=== PATIENT | male | born 1955 | race African-American/Black ===

== ENCOUNTER 2016-10-08 15:35 | Emergency (ER) | payer OTHER ==
[~2016-10-08] VITALS: Ht 175.3 cm; Wt 72.6 kg
[~2016-10-08 15:35] MED LIST: THIA100T8 PO
[2016-10-08 16:10] VITALS: BP 133/76
--- NOTE | 2016-10-08 16:20 | RAD ---
EXAM: Frontal chest with 4 view left rib series. HISTORY: Left rib pain after a fall. COMPARISON: 12/07/2015. FINDINGS: There are acute fractures of the left eighth through 10th anterior/lateral ribs. There are subacute to chronic fractures of the more proximal left anterolateral inferior ribs. There is a vague nodular opacity in the right lung base measuring 18 mm. There is no pneumothorax or pleural effusion. The heart is not enlarged. IMPRESSION: 1. Nondisplaced acute fractures of the left eighth through 10th ribs. No pneumothorax. 2. A vague nodular opacity in the right base is indeterminate. Follow-up or CT could exclude a parenchymal nodule.
[2016-10-08] MEDS ORDERED: HYDR-971 PO (16:41)
[2016-10-08] MEDS ORDERED: CYCL10TA2 PO (16:41)
--- NOTE | 2016-10-08 16:41 | PHYS DOC ---
Past Medical History Past Medical History: Hypertension Past Surgical History: Other Additional Past Surgical Histo: hemorrhoids, HIP SURGERY, cataract Alcohol Use: Heavy Drug Use: None Adult General Chief Complaint Chief Complaint: RIB PAIN HPI HPI Patient is a 61 year old male with history of hypertension who presents today with moderate left lateral rib pain that began 3 days ago after falling while ambulating. Patient denies any loss of consciousness. Patient states he is a smoker. Patient states he has no PCP. Review of Systems Review of Systems Constitutional: Denies fever or chills [] Eyes: Denies change in visual acuity, redness, or eye pain [] HENT: Denies nasal congestion or sore throat [] Respiratory: moderate left lateral rib pain Cardiovascular: No additional information not addressed in HPI [] GI: Denies abdominal pain, nausea, vomiting, bloody stools or diarrhea [] : Denies dysuria or hematuria [] Musculoskeletal: Denies back pain or joint pain [] Integument: Denies rash or skin lesions [] Neurologic: Denies headache, focal weakness or sensory changes [] Endocrine: Denies polyuria or polydipsia [] Current Medications Current Medications Current Medications Medications (Trade) Dose Ordered Sig/Kati Start Time Stop Time Status Last Admin Dose Admin Acetaminophen/ Hydrocodone Bitart (Lortab 5/325) 2 tab 1X ONCE 10/08/16 16:45 10/08/16 16:46 UNV Cyclobenzaprine HCl (Flexeril) 10 mg 1X ONCE 10/08/16 16:45 10/08/16 16:46 UNV Allergies Allergies Allergies Coded Allergies Type Severity Reaction Last Updated Verified No Known Drug Allergies 12/27/14 No Physical Exam Physical Exam Constitutional: Well developed, well nourished, no acute distress, non-toxic appearance. [] HENT: Normocephalic, atraumatic, bilateral external ears normal, oropharynx moist, no oral exudates, nose normal. [] Eyes: PERRLA, EOMI, conjunctiva normal, no discharge. [] Neck: Normal range of motion, no tenderness, supple, no stridor. [] Cardiovascular:Heart rate regular rhythm, no murmur [] Lungs & Thorax: Bilateral breath sounds clear to auscultation left lateral ribs with no obvious edema or ecchymosis, tenderness on palpation diffusely on the left lateral ribs mid axillary running proximately ribs 7 through 11. Abdomen: Bowel sounds normal, soft, no tenderness, no masses, no pulsatile masses. [] Skin: Warm, dry, no erythema, no rash. [] Back: No tenderness, no CVA tenderness. [] Extremities: No tenderness, no cyanosis, no clubbing, ROM intact, no edema. [] Neurologic: Alert and oriented X 3, normal motor function, normal sensory function, no focal deficits noted. [] Psychologic: Affect normal, judgement normal, mood normal. [] Current Patient Data Vital Signs Vital Signs Date Time Temp Pulse Resp B/P Pulse Ox O2 Delivery O2 Flow Rate FiO2 10/08/16 16:10 98.3 77 16 98 Room Air 98.3 EKG EKG [] Radiology/Procedures Radiology/Procedures [] Course & Med Decision Making Course & Med Decision Making Pertinent Labs and Imaging studies reviewed. (See chart for details) Patient is in the ED with left lateral rib pain after falling. X-rays of the left ribs interpreted by radiologist are noted for a nondisplaced acute fractures of left eighth through 10th ribs, no pneumothorax, nodular opacities noted in the patient's lung on xray, recommended they follow up with PCP for this. Patient was provided an incentive spirometry in the ED. Provided a doctor' s list for follow-up. Encouraged to take deep breaths every hour. Provided return precautions and discharged in stable condition. Dragon Disclaimer Dragon Disclaimer This electronic medical record was generated, in whole or in part, using a voice recognition dictation system. Departure Departure Impression: Primary Impression: Fall from standing Additional Impressions: Left rib fracture Smoking addiction Dehydration Disposition: 01 HOME, SELF-CARE Condition: STABLE Referrals: NO PCP (PCP) Follow-up with a doctor from the list provided in 7 days. Patient Instructions: Rib Fracture, [id number] Additional Instructions: You were seen for rib fractures after falling. Take the prescribed medicines as needed. Take deep breaths 10 times every hour while awake. Follow-up with a doctor from the list provided in one week. Come back to the ED if symptoms worsen. Scripts Hydrocodone/Apap 5-325 ([place] 5-325 Tablet)1 Each Tablet1-2 Tab PO Q4-6HRS #25 TAB Prov:MUTUNGA,ALTA MITER OPERATOR 10/08/16 Cyclobenzaprine Hcl 10 Mg Tablet1 Tab PO TID #30 TAB Prov:ALEKSANDRAJAIMEALTA MONTENEGRO 10/08/16 Problem Qualifiers Primary Impression: Fall from standing Encounter type: initial encounter Qualified Code: W19.XXXA - Unspecified fall, initial encounter Additional Impressions: Left rib fracture Encounter type: initial encounter Rib fracture type: multiple ribs Fracture type: closed Qualified Code: S22.42XA - Multiple fractures of ribs, left side, initial encounter for closed fracture ALTA METZ APRN Oct 08, 2016 16:41
[2016-10-08] MEDS ORDERED: HYDROCODONE/APAP 5/325MG TABLET. PO ONE (16:45)
[2016-10-08] MEDS ORDERED: CYCLOBENZAPRINE 10 MG TABLET. PO ONE (16:45)
== END 2016-10-08 17:08 | disposition home or self-care (01) ==
LOC: ER 15:35
DX: S22.32XA Fracture of one rib, left side, initial encounter for closed fracture (principal); I10 Essential (primary) hypertension; E86.0 Dehydration; F17.200 Nicotine dependence, unspecified, uncomplicated; F10.10 Alcohol abuse, uncomplicated; W19.XXXA Unspecified fall, initial encounter; Y93.89 Activity, other specified; Y99.8 Other external cause status; Y92.89 Other specified places as the place of occurrence of the external cause
CPT/HCPCS: 71101; 99284

== ENCOUNTER → 2019-10-30 | Outpatient (CLI) | payer MEDICAID ==
[2019-09-23 15:00] VITALS: BP 134/93
[~2019-10-30] MED LIST changes: +CONTRAST GIVEN. MC PRN; +CYCL10TA2 PO; +HYDR-2761 PO; +HYDR-3164 PO; +Nicotine 21MG TD
[2019-10-30] MEDS: IOHEXOL 300 MG/ML 100ML VIAL. IV ONE (08:45)
[2019-10-30] MEDS: IOHEXOL 240 MG/ML 50ML VIAL. PO ONE (08:45)
--- NOTE | 2019-10-30 09:21 | RAD ---
Examination: CT ABD PELV W/ORAL IV CONTRAST History: Lung cancer Comparison/Correlation: 09/19/2019 CT chest with contrast Findings: Axial images of the abdomen and pelvis were obtained following IV and oral contrast. Sagittal and coronal reformatted images were provided. Oral contrast was inserted. Right lower lung field mass with necrotic components is only partially included for purposes of this exam. Surrounding interstitial thickening is seen. Minimal improvement aeration in the distribution of this process noted. Emphysematous involvement of the lower lung walker noted. At the inferior aspect of the right hepatic lobe, there is a 1.3 cm x 1.1 cm mass lesion abutting the capsule with peripheral nodular enhancement as would be expected of a hemangioma. Spleen, pancreas, adrenal glands, and kidneys are normal. Moderate to large quantity of stool is present in the colon. No extraluminal gas. No ascites or pelvic free fluid. Urinary bladder is unremarkable. No suspicious bony process. There is moderate L3-4 and L4-5 disc space narrowing. Concentric disc bulges are present at these levels associated with L3 with spinal canal stenosis. Minimal retrolisthesis of L3 in relation L4. Left hip joint prosthesis is present. Impression: Right hepatic lobe lesion which most likely represents a hemangioma. Correlation with previous exams if available is recommended. Alternatively, ultrasound exam may be performed for further characterization. Right lower lung field mass is again seen. Minimal aeration within necrotic components is evident in the interval. PQRS Compliance Statement: One or more of the following individualized dose reduction techniques were utilized for this examination: 1. Automated exposure control 2. Adjustment of the mA and/or kV according to patient size 3. Use of iterative reconstruction technique Electronically signed by: Kenneth Gonsalves MD (10/30/2019 9:18 AM) [id number]
[2019-10-30] MEDS: GADOTERATE 7.5 MMOL/15ML VIAL. IVP ONE (09:34)
--- NOTE | 2019-10-30 10:26 | RAD ---
BRAIN WO/W CONTRAST History:Lung cancer. Technique: Multiplanar, multi sequential pre and postcontrast MR imaging was performed of the brain. Comparison: December 07, [address] angiogram neck September 19, 2019 Findings: No acute infarct. No intracranial hemorrhage. No mass effect. No hydrocephalus. Mild brain parenchymal volume loss. Minimal foci of T2/FLAIR hyperintensity within the hemispheric white matter, within normal range for age. Imaged orbits are unremarkable. Left inferior maxillary sinus because retention cyst or polyp, slightly increased in size compared to 2016. Right mastoid and middle ear fluid, unchanged. Left mastoid fluid, unchanged. Large necrotic right neck mass better characterized on dedicated CT angiogram neck. Impression: 1. No acute intracranial abnormality. No evidence of metastatic disease. 2. Right otomastoid opacification, unchanged. 3. Large right necrotic neck mass, better characterize and CT angiogram neck. Electronically signed by: David Dooley DO (10/30/2019 10:24 AM) [id number]
== END ==
LOC: CT 07:38
PROVIDERS: ATTEND Internal Medicine Hematology & Oncology
DX: C34.31 Malignant neoplasm of lower lobe, right bronchus or lung (principal); K76.9 Liver disease, unspecified; M48.061 Spinal stenosis, lumbar region without neurogenic claudication; R22.1 Localized swelling, mass and lump, neck
CPT/HCPCS: 70553; 74177; A9575; Q9966; Q9967

== ENCOUNTER → 2020-02-02 | Outpatient (CLI) | payer MEDICAID ==
[2019-09-23 15:00] VITALS: BP 134/93
[~2020-02-02] MED LIST changes: +IOHEXOL 240 MG/ML 50ML VIAL. PO ONE; +IOHEXOL 300 MG/ML 100ML VIAL. IV ONE
--- NOTE | 2020-02-02 15:48 | RAD ---
Examination: CT NECK CHEST ABD PELVIS W CON History: Reason: MALIGNANT NEOPLASM OF RIGHT LUNG / Spl. Instructions: IV OMNI 300 75 MNLS AND PO OMNI 240 50 MLS / History: Comparison/Correlation: CTA neck 09/19/2019, CT chest with contrast 09/20/2019, CT abdomen and pelvis with contrast 10/30/2019 Findings: Axial images of the neck, chest, abdomen, and pelvis were obtained following IV contrast. Oral contrast was utilized. Sagittal and coronal reformatted images were provided. Visualized posterior fossa is unremarkable. Orbits are unremarkable. Chronic bilateral maxillary sinusitis is present. Mucosal thickening of ethmoid air cells is noted. Right medial wall maxillary sinus defect is present. Correlate with surgical history. Old depressed fracture of the antrum on the right lesser sinus is present. Defects involving the right lateral maxillary sinus wall presumably related to previous trauma noted. Parotid and submandibular glands are unremarkable. No enlarged lymph nodes are identified involving the head and neck. True and false cords are symmetric. Thyroid gland is normal. Mass lesion previously described involving the right side of the neck posterior to the submandibular gland as noted has significantly decreased in size currently measuring 2.4 cm x 0.5 cm on axial image 53 of series 2. Disc space narrowing at multiple levels of the cervical spine are noted and most severe at C5-6. Multiple lucencies are present involving cervical spine vertebral bodies similar to the prior exam and these are of indeterminate significance. These are stable and small in size. Right upper lung field mass is present measuring 3.2 cm x 1.4 cm transverse by 2.6 longitudinal. This is moderately decrease in size in the axial plane compared to the previous exam. At the right lower lobe infrahilar region extending to the basilar aspect abutting the major fissure, a mass is noted to have significantly decreased since the prior exam. Cavitary component within it is seen in the interval. Overall this process measures 5.8 cm x 3.9 cm in the coronal plane on image 41 by 4.3 cm anteroposterior on axial image #6. This represents a decrease compared to the previous exam in the coronal plane by 1.3 cm x 2.2 cm and a decrease in the anteroposterior dimension by 1.4 cm compared to previous exam. Left upper lung field ground glass infiltrate on axial image 29 is similar to the prior exam measuring 1.7 cm x 1.5 cm although the cavitary component is resolved in the interval. Diffuse emphysematous involvement of the lung walker is noted. No enlarged thoracic lymph nodes. Liver, spleen, pancreas, adrenal glands, and kidneys are unremarkable. There is a lesion at the inferior aspect of the right hepatic lobe on axial image 28 measuring 1.1 mm in diameter which is stable and probably represents a hemangioma. There are no enlarged abdominal or pelvic lymph nodes. No bowel obstruction. No ascites or pelvic free fluid. Urinary bladder is grossly unremarkable although evaluation is limited at the inferior aspect due to streak artifact related to the left hip joint prosthesis present. Multilevel disc space narrowing of the lumbar spine is present. Concentric disc bulge is especially noted at L3-4 and L4-5 with moderate spinal canal stenoses. Impression: Decrease in size of the right upper and lower lung masses. No change in left upper lung field ground glass infiltrate other than resolution of the cavitary component. Marked decrease in the mass lesion posterior to the right submandibular gland. No new masses or enlarged lymph nodes. No findings to suggest interval metastases. Hepatic lesion is stable likely representing a hemangioma. Correlation with ultrasound exam or continued interval follow-up to assess stability is recommended. Electronically signed by: Kenneth Gonsalves MD (02/02/2020 3:45 PM) [id number]
== END | disposition home or self-care (01) ==
LOC: CT 09:45
PROVIDERS: ATTEND Internal Medicine Hematology & Oncology
DX: C34.31 Malignant neoplasm of lower lobe, right bronchus or lung (principal); R53.83 Other fatigue; R91.8 Other nonspecific abnormal finding of lung field; J43.9 Emphysema, unspecified; M51.26 Other intervertebral disc displacement, lumbar region; M48.061 Spinal stenosis, lumbar region without neurogenic claudication
CPT/HCPCS: 70491; 71260; 74177; Q9966; Q9967

== ENCOUNTER → 2020-04-27 | Outpatient (CLI) | payer MEDICAID ==
[2019-09-23 15:00] VITALS: BP 134/93
[~2020-04-27] MED LIST changes: -CONTRAST GIVEN. MC PRN
--- NOTE | 2020-04-27 16:43 | RAD ---
Examination: CT NECK CHEST ABD PELVIS W CON History: R LUNG CA / Spl. Instructions: INJ 75ML OMNI 300 30ML OMNI 240 PO Comparison/Correlation: CT neck 09/19/2019, CT chest with contrast 09/21/2019, CT abdomen and pelvis with contrast 10/30/2019, CTA neck chest abdomen and pelvis 02/02/2012 Findings: Axial images of the neck, chest, abdomen, and pelvis were obtained following IV contrast. Sagittal and coronal reformatted images were provided. Axial images of the neck, chest, abdomen, and pelvis obtained following IV contrast. Sagittal and coronal reformatted images were provided. Maxillary sinus mucous retention cysts are present. Deformity involving the right maxillary sinus lateral wall is again seen. Soft tissue density posterior to the right mandibular gland is present. It is similar to the previous exam abutting the proximal aspect of the internal carotid artery. No new cervical masses or enlarged lymph nodes. Thyroid gland is normal. The true and false cords are symmetric. Parotid and submandibular glands are symmetric and unremarkable. Overall decreased volume of the patient's known right upper lobe spiculated mass. This process currently measures 2.5 cm longitudinal by 0.8 cm transverse by 2.8 cm anteroposterior. This represents a decrease in transverse dimension by 0.4 cm and minimal decrease in the anteroposterior dimension. Infralateral linear atelectasis or scarring has developed in the interval. Right lower lobe basilar atelectatic postobstructive consolidation process with retained secretions is identified. Cavitary component previously evident is no longer seen. This process measures 4 cm transverse by 7.6 cm anteroposterior by 4.4 cm longitudinal. Groundglass infiltrate involving the left upper lung anteriorly on axial images 25 through 28 measuring up to 1.5 cm the prior exam. Cavitary confluent subjacent and posterior to the infiltrate is unchanged. Mild centrilobular emphysema is present. No enlarged thoracic nodes. Bony thorax is unremarkable. Degenerative change of cervical spine noted. No significant degenerative change of the thoracic spine. Liver, spleen, pancreas, and kidneys are unremarkable. Right hepatic lobe low-attenuation lesion measuring 1 cm in diameter is stable as compared to 02/18/2009 CT abdomen and pelvis with contrast representing a hemangioma or other benign process. Adrenal glands are unremarkable. Appendix is normal. No large abdominal or pelvic lymph nodes. No ascites or pelvic free fluid. Urinary bladder is unremarkable. Left hip arthroplasty is again seen. Degenerative disc space narrowing from L2 to L4 is present. Concentric disc bulge at L2-3 and L3-4 is present with vacuum phenomenon and associated spinal canal stenosis of moderate extent.these sites. Impression: Soft tissue density posterior to the right submandibular gland is stable. Mild decrease in the right upper lung mass. Increase in right basilar lower lobe atelectatic consolidation. Unchanged left upper lung groundglass infiltrate. Continued follow-up recommended. No suspicious abdominal or pelvic findings. Electronically signed by: Kenneth Gonsalves MD (04/27/2020 4:40 PM) [id number]
== END | disposition home or self-care (01) ==
LOC: CT 12:36
PROVIDERS: ATTEND Internal Medicine Hematology & Oncology
DX: C34.31 Malignant neoplasm of lower lobe, right bronchus or lung (principal); R53.83 Other fatigue; J43.2 Centrilobular emphysema; M47.813 Spondylosis without myelopathy or radiculopathy, cervicothoracic region
CPT/HCPCS: 70491; 71260; 74177; Q9966; Q9967

== ENCOUNTER → 2020-08-01 | Outpatient (CLI) | payer MEDICAID ==
[2019-09-23 15:00] VITALS: BP 134/93
[~2020-08-01] MED LIST changes: +CONTRAST GIVEN. MC PRN; +IOHEXOL 240 MG/ML 50ML VIAL. ONE
--- NOTE | 2020-08-02 14:10 | RAD ---
EXAM: CT Chest, Abdomen, and Pelvis with IV contrast INDICATION: Reason: MALIGNANT NEOPLASM OF RIGHT LUNG / Spl. Instructions: IV OMNI 300 75 MLS AND PO O MNI 240 50 MLS / History: TECHNIQUE: Multi-detector row CT images were acquired from the thoracic inlet through the ischial tu berosities with the use of IV contrast. Sagittal and coronal images were acquired from the transaxial data. All CT scans performed at this facility utilize dose optimization techniques as appropriate to the exam, including the following: Automated exposure control and adjustment of the mA and/or KV acc ording to patient size (this includes techniques or standardized protocols for targeted exams where d ose is indication/reason for exam). IV CONTRAST: Administered ORAL CONTRAST: Administered COMPARISON: CT chest abdomen pelvis with IV contrast of 04/27/2020 and 01/06/2020 FINDINGS: CHEST: CARDIOVASCULAR: Tortuous thoracic aorta. Normal heart size. No pericardial effusion. MEDIASTINUM & MANFRED: No adenopathy or masses. LUNGS: Slight interval decrease in spiculated right upper lobe lung nodule, now measuring 1.6 x 0.9 x 1.9 cm (AP by transverse by craniocaudal), as measured on image 22 of series 3 and image 21 of series 8 on the axial and coronal planes, compared with 2.6 x 1.0 x 2.4 cm at the comparable levels on the most r ecent comparison examination of 04/27/2020 (image 26 of series 3 and image 34 of coronal series 9). Although the mass is irregular and thus variable in measurement, there is clear, equivocal progressiv e decrease in size when compared with the January 2020 prior exam. No new lung masses are nodules identi fied. Segmental postobstructive atelectasis in the anterior and lateral basal segments of the right lower l obe is again demonstrated. Overall size is similar to prior measuring 3.9 x 4.0 cm AP by transverse ( image 47 series 3) compared with 4.9 x 4.2 cm at the comparable level in January and 5.9 x 4.1 [facility]. Underlying mild centrilobular pattern emphysema is redemonstrated. PLEURAL SPACE: No pleural effusions or pneumothorax. OSSEOUS & SOFT TISSUE: Unremarkable ABDOMEN/PELVIS: LIVER: Stable 1.2 cm nodular peripheral enhancing low-density lesion in the right hepatic lobe janette tible with a hemangioma. BILIARY SYSTEM: Gallbladder is unremarkable. Bile ducts are not dilated. PANCREAS: Unremarkable SPLEEN: Unremarkable ADRENALS: Unremarkable KIDNEYS & URETERS: Mild bilateral renal cortical scarring or persistent lobulation is present. No abnormal enhancement. No radiopaque stones or hydronephrosis and no hydroureter is identified. Th ere is some respiratory motion artifact that limits detail. BLADDER: Unremarkable although obscured by streak artifact from left hip arthroplasty REPRODUCTIVE ORGANS: Unremarkable GASTROINTESTINAL: Oral contrast was administered but it does not opacify the entire small bowel at th e time of imaging. There is very dense intraluminal contrast present in the left sided abdominal smal l bowel loops and no enteric contrast identified in the right-sided small bowel loops. Instead, there is filled with unopacified fluid and there is intervening gradual dilution of enteric contrast. This is a pattern suggestive of a partial small bowel obstruction. Correlate clinically. The large bowel is unremarkable. The appendix is not well seen but there are no findings of acute appendicitis noted. MESENTERY/PERITONEUM/RETROPERITONEUM: Unremarkable VASCULAR: Unremarkable LYMPH NODES: No adenopathy OSSEOUS & SOFT TISSUES: Left total hip arthroplasty. No fracture or aggressive appearing osseous les ions are identified. IMPRESSION: 1. Slight interval decrease in size of the spiculated right upper lobe lung nodule, now measuring 1. 6 x 0.9 x 1.9 cm compared with 2.6 x 1.0 x 2.4 cm on the most recent comparison examination of 020. No new lung masses are identified. Subsegmental atelectasis in the right lower lobe anterior and lateral basal segment persists. Obstructive cause not clear based on CT alone. Correlate clinically including bronchoscopy as clinically warranted. 2. No evidence for metastatic disease in the abdomen or pelvis. 3. Findings suggestive of a partial small bowel obstruction, as detailed above. Correlate clinically . Electronically signed by: Jessica Harris MD (08/02/2020 2:07 PM) [id number]
== END ==
LOC: CT 14:02
PROVIDERS: ATTEND Internal Medicine Hematology & Oncology
DX: C34.91 Malignant neoplasm of unspecified part of right bronchus or lung (principal); R91.1 Solitary pulmonary nodule; J43.2 Centrilobular emphysema; J98.11 Atelectasis; R53.83 Other fatigue; Q25.46 Tortuous aortic arch; K76.89 Other specified diseases of liver; Z96.642 Presence of left artificial hip joint
CPT/HCPCS: 71260; 74177; Q9966; Q9967

== ENCOUNTER → 2020-11-09 | Outpatient (CLI) | payer MEDICAID ==
[2019-09-23 15:00] VITALS: BP 134/93
[~2020-11-09] MED LIST changes: -IOHEXOL 240 MG/ML 50ML VIAL. ONE
--- NOTE | 2020-11-10 14:55 | RAD ---
EXAM: CT CHEST, ABDOMEN, AND PELVIS WITH CONTRAST INDICATION: Malignant neoplasm of right lung COMPARISON: CT chest abdomen pelvis 08/01/2020 TECHNIQUE: Helical CT imaging performed of the chest, abdomen and pelvis after administration of 75 m L Omnipaque 300 contrast. Sagittal and coronal reformats were obtained. One or more of the following individualized dose reduction techniques were utilized for this examinat ion: 1. Automated exposure control 2. Adjustment of the mA and/or kV according to patient size 3. Use of iterative reconstruction technique. FINDINGS: CHEST: Thyroid gland and thoracic inlet: Normal. Heart and great vessels: Heart is normal in size. No pericardial effusion. Thoracic aorta is normal i n caliber. Central pulmonary arteries are clear. Mediastinum and marce: No lymphadenopathy. Lungs and pleura: Spiculated nodule in the right upper lobe measures 2.5 x 0.8 x 2.3 cm (AP by transv erse by CC) is unchanged. A masslike consolidation in the right lower lobe measures 3.2 x 3.5 x 2.6 c m, previously 3.9 x 3.9 x 2.7 cm. There is mild centrilobular emphysema. No new pulmonary nodules. No pleural effusion. Chest wall and axillae: Small right axillary lymph nodes measuring 6 mm axis are unchanged. Bilateral gynecomastia. Bones: No acute osseous abnormality in the chest. ABDOMEN AND PELVIS: Liver: A 7 mm hypodense lesion in the posterior right hepatic lobe with peripheral nodular enhancemen t is unchanged from 2009 and consistent with a hemangioma. No new liver lesion. Gallbladder/Biliary Tree: Normal. Pancreas: Normal. Spleen: Normal. Adrenal Glands: Normal. Kidneys/Ureters/Bladder: The kidneys are normal. Ureters and bladder are grossly normal. Streak artif act from a left hip prosthesis mildly limits evaluation of the distal left ureter and bladder. Reproductive Organs: Prostate gland is partially obscured by streak artifact. Stomach, small bowel, and colon: Stomach is normal. No small bowel obstruction. The colon is unremark able. Vasculature: Abdominal aorta is normal in caliber. Lymph Nodes: No lymphadenopathy. Peritoneum and retroperitoneum: No free fluid or free air. Bones: Left hip prosthesis is unchanged. Mild degenerative disc disease at L3-L4 and L4-L5. No acute osseous abnormality or suspicious osseous lesion. IMPRESSION: 1. Unchanged spiculated nodule in the right upper lobe. Slightly decreased size of masslike consolid ation in the right lower lobe. 2. No evidence of metastatic disease in the abdomen or pelvis. Electronically signed by: Sandhya Arias MD (11/10/2020 2:52 PM) [id number]
== END ==
LOC: CT 12:21
PROVIDERS: ATTEND Internal Medicine Hematology & Oncology
DX: C34.31 Malignant neoplasm of lower lobe, right bronchus or lung (principal); J43.2 Centrilobular emphysema; M51.36 Other intervertebral disc degeneration, lumbar region; R91.1 Solitary pulmonary nodule; Z96.642 Presence of left artificial hip joint
CPT/HCPCS: 71260; 74177; Q9966; Q9967

== ENCOUNTER 2021-01-31 20:55 | Emergency (ER) | payer MEDICAID ==
[~2021-01-31] VITALS: Ht 175.3 cm; Wt 60.7 kg
[~2021-01-31 20:55] MED LIST changes: -CONTRAST GIVEN. MC PRN; -IOHEXOL 240 MG/ML 50ML VIAL. PO ONE; -IOHEXOL 300 MG/ML 100ML VIAL. IV ONE
--- NOTE | 2021-01-31 21:43 | PHYS DOC ---
Past Medical History Past Medical History: Glaucoma, Hypertension Past Surgical History: Other Additional Past Surgical Histo: hemorrhoids, HIP SURGERY, cataract Smoking Status: Current Every Day Smoker Alcohol Use: Heavy Drug Use: None General Adult EDM: Chief Complaint: LOWER EXT PAIN HPI: HPI: Patient is a 65 year old male who was brought here by EMS from home due to right foot and ankle pain started today. Patient denies any injury. Patient complained of pain whenever he walks up any weight on it. Patient has history of hip replacement on the left side. Patient denies any injury, no back pain, no abdominal pain, no chest pain, no nausea vomiting, no headache, no dizziness. Patient has history of lung cancer, stage IV lung cancer, is currently under chemo treatment at [facility]. Review of Systems: Review of Systems: Constitutional: Denies fever or chills. [] Eyes: Denies change in visual acuity. [] HENT: Denies nasal congestion or sore throat. [] Respiratory: Denies cough or shortness of breath. [] Cardiovascular: Denies chest pain or edema. [] GI: Denies abdominal pain, nausea, vomiting, bloody stools or diarrhea. [] : Denies dysuria. [] Musculoskeletal: Positive for right foot and ankle pain. Neurologic: Denies headache, focal weakness or sensory changes. [] Endocrine: Denies polyuria or polydipsia. [] Lymphatic: Denies swollen glands. [] Psychiatric: Denies depression or anxiety. [] Heart Score: C/O Chest Pain: N/A Risk Factors: Risk Factors: DM, Current or recent (<one month) smoker, HTN, HLP, family history of CAD, obesity. Risk Scores: Score 0 - 3: 2.5% MACE over next 6 weeks - Discharge Home Score 4 - 6: 20.3% MACE over next 6 weeks - Admit for Clinical Observation Score 7 - 10: 72.7% MACE over next 6 weeks - Early Invasive Strategies Allergies: Allergies: Allergies Coded Allergies Type Severity Reaction Last Updated Verified No Known Drug Allergies 12/27/14 No Physical Exam: PE: Constitutional: Well developed, well nourished, no acute distress, non-toxic appearance. [] HENT: Normocephalic, atraumatic, bilateral external ears normal, oropharynx moist, no oral exudates, nose normal. [] Eyes: PERRLA, EOMI, conjunctiva normal, no discharge. [] Neck: Normal range of motion, no tenderness, supple, no stridor. [] Cardiovascular:Heart rate regular rhythm, no murmur [] Lungs & Thorax: Bilateral breath sounds clear to auscultation [] Abdomen: Bowel sounds normal, soft, no tenderness, no masses, no pulsatile masses. [] Skin: Warm, dry, no erythema, no rash. [] Back: No tenderness, no CVA tenderness. [] Extremities: Right foot and ankle with some swelling, tender to palpation, no redness. no deformity. Neurologic: Alert and oriented X 3, normal motor function, normal sensory function, no focal deficits noted. [] Psychologic: Affect normal, judgement normal, mood normal. [] EKG: EKG: [] Radiology/Procedures: Radiology/Procedures: [][facility] [address] [place] [address] IMAGING REPORT Signed PATIENT: BRAYAN PEDRAZA AACCOUNT: [id number] : 1955 LOCATION: ER AGE: 65 SEX: M EXAM STATUS: REG ER ORD. PHYSICIAN: AI PIEDRA DO REASON: RIGHT FOOT PAIN PROCEDURE: ANKLE RIGHT 3V Exam: Right ankle 3 views. Right foot 3 views INDICATION: Right foot pain TECHNIQUE: Frontal, lateral and oblique views of the right ankle and right foot Comparisons: None FINDINGS: Ankle: There is soft tissue swelling surrounding the right ankle. Mild osteopenia. Bone mineralization is normal. Joint spaces are well-maintained. Foot: Mild osteopenia. No displaced fractures are identified. Joint spaces are well- maintained. Soft tissues are unremarkable. IMPRESSION: 1. Soft tissue swelling surrounding the ankle without underlying osseous abnormality 2. No acute osseous abnormality of the right foot Electronically signed by: Blue Clark MD (01/31/2021 10:18 PM) [facility] DICTATED and SIGNED BY: BLUE CLARK MD DATE: 01/31/21 [id number] 0 Course & Med Decision Making: Course & Med Decision Making Pertinent Labs and Imaging studies reviewed. (See chart for details) [] Dragon Disclaimer: Dragon Disclaimer: This electronic medical record was generated, in whole or in part, using a voice recognition dictation system. Departure Departure Impression: Primary Impression: Right foot pain Additional Impression: Right ankle pain Disposition: HOME / SELF CARE / HOMELESS Condition: STABLE Referrals: BLAIR YANEZ JR, MD (PCP) Follow up with your doctor as needed this week. Patient Instructions: Ankle Pain Additional Instructions: Thank you for visiting our Emergency Department. We appreciate you trusting us with your care. If any additional problems come up don't hesitate to return to visit us. Please follow up with your primary care provider so they can plan additional care if needed and know about the problem that you had. If symptoms worsen come back to the Emergency Department. Any concerning symptoms that start such as chest pain, shortness of air, weakness or numbness on one side of the body, running high fevers or any other concerning symptoms return to the ER. AI PIEDRA DO Jan 31, 2021 21:43
--- NOTE | 2021-01-31 22:20 | RAD ---
Exam: Right ankle 3 views. Right foot 3 views INDICATION: Right foot pain TECHNIQUE: Frontal, lateral and oblique views of the right ankle and right foot Comparisons: None FINDINGS: Ankle: There is soft tissue swelling surrounding the right ankle. Mild osteopenia. Bone mineralization is no rmal. Joint spaces are well-maintained. Foot: Mild osteopenia. No displaced fractures are identified. Joint spaces are well-maintained. Soft tissue s are unremarkable. IMPRESSION: 1. Soft tissue swelling surrounding the ankle without underlying osseous abnormality 2. No acute osseous abnormality of the right foot Electronically signed by: Blue Dubon MD (01/31/2021 10:18 PM) SHE
[2021-01-31] MEDS ORDERED: HYDROcodone/APAP 5/325MG 1 TAB TABLET PO ONE (23:00)
[2021-01-31 23:03] VITALS: BP 151/90
== END 2021-01-31 23:25 | disposition home or self-care (01) ==
LOC: ER 20:55
DX: M79.671 Pain in right foot (principal); M25.571 Pain in right ankle and joints of right foot; I10 Essential (primary) hypertension; F17.200 Nicotine dependence, unspecified, uncomplicated; F10.20 Alcohol dependence, uncomplicated; Y90.9 Presence of alcohol in blood, level not specified
CPT/HCPCS: 73610; 73630; 99285-25

== ENCOUNTER → 2021-03-13 | Outpatient (CLI) | payer MEDICAID ==
[~2021-03-13] MED LIST changes: +IOHEXOL 240 MG/ML 50ML VIAL. PO ONE; +IOHEXOL 300 MG/ML 100ML VIAL. IV ONE
--- NOTE | 2021-03-13 17:00 | RAD ---
EXAM: CT OF THE CHEST, ABDOMEN AND PELVIS WITH CONTRAST. HISTORY: Lung cancer. TECHNIQUE: Computed tomography of the chest, abdomen and pelvis was performed after the intravenous a dministration of iodinated contrast. One or more of the following individualized dose reduction tech niques were utilized for this examination: 1. Automated exposure control. 2. Adjustment of the mA and/or kV according to patient size. 3. Use of iterative reconstruction technique. COMPARISON: 11/09/2020. FINDINGS: Bone windows reveal no suspicious lesions. A left hip hemiarthroplasty is noted. There are no pathologically enlarged mediastinal or axillary lymph nodes. Some soft tissue density in the right infrahilar region is stable and likely reflects treated adenopathy. There is no pleural or pericardial effusion. The right atrium is enlarged. A scarlike nodule in the right upper lobe measures 3.2 x 1.0 cm and is stable. Another right lower lo be mass with adjacent consolidation spans 3.4 x 3.0 cm and is also stable. Additional scarlike nodule s in the left upper lobe are also stable. One posteriorly measures 11 mm. Another with a central dae on of cavitation measures 10 mm. The interlobular emphysema is mild to moderate. A hemangioma in hepatic segment 6 measures 11 mm. The pancreas, adrenal glands, spleen, gallbladder a nd kidneys are unremarkable. There are no pathologically enlarged lymph nodes. There is no evidence of appendicitis. There is no small bowel obstruction. IMPRESSION: 1. Treated masses within both lungs are stable and mostly scarlike. No evidence of active disease. Electronically signed by: Karen Wren MD (03/13/2021 4:58 PM) [id number]
== END ==
LOC: CT 12:32
PROVIDERS: ATTEND Internal Medicine Hematology & Oncology
DX: C34.31 Malignant neoplasm of lower lobe, right bronchus or lung (principal); R91.8 Other nonspecific abnormal finding of lung field; J43.9 Emphysema, unspecified; D18.09 Hemangioma of other sites
CPT/HCPCS: 71260; 74177; Q9966; Q9967

== ENCOUNTER → 2021-06-27 | Outpatient (CLI) | payer MEDICAID, OTHER ==
[~2021-06-27] MED LIST changes: +CYCL10TA19 PO; -CYCL10TA2 PO
--- NOTE | 2021-06-27 14:18 | RAD ---
CT chest, abdomen and pelvis with contrast PQRS statement: CT scans at this facility use dose reduction including either automated exposure cont rol, iterative reconstructions, and /or weight based radiation dosing via mA and kV modification when appropriate to reduce radiation dose to as low as reasonably achievable. HISTORY: Malignant neoplasm of the right lung. Lung cancer. COMPARISON: CT chest, abdomen and pelvis March 13, 2021 and prior studies. Contrast: 75 mL Omnipaque [address] chest findings: Mild calcified plaque, and tortuosity thoracic aorta. Mild cardiomegaly. Pulmonary vessels and esophagus are normal. No enlarged adenopathy in the chest. At the right upper lobe there is a linear scarlike nodular density measuring 2.5 x 0.8 cm grossly stable with thin linear scarring extending peripherally to the adjacent pleura. Separately at the right lower lobe anterior and later al basilar segments abutting the fissure is a bandlike nodular opacity which measures 3.0 x 2.5 cm tr ansaxial and 6 cm craniocaudal with peribronchial infrahilar lower lobe opacity contiguous with the l ower basilar nodular density, stable, a portion or all of this could represent round atelectasis give n that it abuts the pleura and there is mild lobar volume loss and there is comet tail of the broncho vascular structures leading to this opacity. Mild centrilobular pulmonary emphysema changes noted. 1 cm cystic focus or cavitation with mild surrounding groundglass density left upper lobe image 24 stab le. No pleural effusions. No new pulmonary opacities or nodules. Bones are unremarkable. FINDINGS: Lateral subcapsular right hepatic lobe 1 hypodense lesion with peripheral discontiguous nod ular enhancement is stable likely a hemangioma. Gallbladder, pancreas, spleen, adrenal glands and kid neys are unremarkable. Tortuosity and calcified plaque of the aorta and iliac arteries. No obstructio n or inflammation GI tract. No abdominal fluid or adenopathy. Lumbar disc disease with spinal canal s tenoses at several levels. Pelvis findings: Streak artifact from left hip arthroplasty. Bladder, prostate and rectum unremarkabl e. IMPRESSION: 1. The right upper lobe and right lower lobe treated masses are stable as described above. 2. No evidence of thoracic, abdominal or pelvic metastatic disease. 3. Stable findings as described above. Electronically signed by: Fransisco Sheppard MD (06/27/2021 2:15 PM) [facility]ALTH[facility]
== END ==
LOC: CT 11:42
PROVIDERS: ATTEND Internal Medicine Hematology & Oncology
DX: C34.31 Malignant neoplasm of lower lobe, right bronchus or lung (principal); R91.8 Other nonspecific abnormal finding of lung field; Q25.46 Tortuous aortic arch; J43.2 Centrilobular emphysema; I70.0 Atherosclerosis of aorta; I70.8 Atherosclerosis of other arteries; M51.36 Other intervertebral disc degeneration, lumbar region; M48.061 Spinal stenosis, lumbar region without neurogenic claudication
CPT/HCPCS: 71260; 74177; Q9966; Q9967

== ENCOUNTER → 2021-10-02 | Outpatient (CLI) | payer MEDICAID ==
--- NOTE | 2021-10-03 08:39 | RAD ---
CT CHEST+ABD+PELVIS W History: Right lung cancer. Comparison: 06/27/2021, 03/13/2021 Technique: CT of the chest, abdomen and pelvis with oral and intravenous contrast. Findings: Chest: Pulmonary arteries: Normal caliber. No large or central pulmonary embolism Aorta and great vessels: No aneurysm of the aortic arch or thoracic aorta is seen. Mild atherosclerot ic calcification. Heart: The heart is normal in size. There is no pericardial effusion. No coronary artery calcificatio n. Thyroid: No significant abnormalities. Mediastinum and marce: No mediastinal masses or adenopathy is seen. Esophagus: The visualized esophagus is normal. Airways, Lungs, Pleura: Minimal dependent debris in the trachea. Mild emphysematous change. Redemonst rated right upper lobe scarlike density measuring 3.3 x 0.8 cm, not significantly changed from compar eamon. Right lower lobe region of scarring extending to the pleural surface measures approximately 2.9 x 2.4 cm, also not significantly changed from 2 most recent comparisons. No new or enlarging pulmona ry nodule. No pleural effusion or pneumothorax. Soft tissue and osseous: Mild gynecomastia. Abdomen/Pelvis: General abdomen: No ascites. No free air. Liver : Normal in size and attenuation. Segment 6 peripheral hemangioma redemonstrated. Gallbladder/Biliary Tree: Normal gallbladder. No intrahepatic or extrahepatic biliary ductal dilatati on. Pancreas: Normal. Spleen: Normal in size and attenuation. Adrenal glands: Normal. Kidneys: No hydronephrosis or hydroureter. No renal masses identified. Gastrointestinal: Prominent stool at the rectum. No colonic wall thickening or evidence of bowel obst ruction. Lymph nodes: No lymphadenopathy. Vessels: Aortoiliac atherosclerosis. No aneurysm. Pelvic Organs: Metallic artifact from left hip arthroplasty obscures bladder and prostate. The bladde r is relatively decompressed. Soft tissues: Unremarkable. Bones: Left total hip arthroplasty without evidence of complication. No suspicious lytic or blastic l esions. Multilevel degenerative disc disease in the lumbar spine. Pseudoarticulation of the left rose sverse process opacified with the sacrum. Impression: 1. Stable appearance of right upper and right lower lobe pulmonary masses/scarring. 2. No evidence of metastatic disease in the chest, abdomen and pelvis. ------ Exposure: One or more of the following individualized dose reduction techniques were utilized for thi s examination: 1. Automated exposure control 2. Adjustment of the mA and/or kV according to patient size 3. Use of iterative reconstruction technique. Electronically signed by: Chriss De MD (10/03/2021 8:37 AM) [id number]
== END ==
LOC: CT 13:12
PROVIDERS: ATTEND Internal Medicine Hematology & Oncology
DX: R91.8 Other nonspecific abnormal finding of lung field (principal); J43.9 Emphysema, unspecified; I70.0 Atherosclerosis of aorta; I70.8 Atherosclerosis of other arteries; N62 Hypertrophy of breast; M51.36 Other intervertebral disc degeneration, lumbar region; Z96.642 Presence of left artificial hip joint
CPT/HCPCS: 71260; 74177; Q9966; Q9967

== ENCOUNTER → 2021-10-30 | Outpatient (CLI) | payer MEDICAID ==
[~2021-10-30] MED LIST changes: -IOHEXOL 240 MG/ML 50ML VIAL. PO ONE; -IOHEXOL 300 MG/ML 100ML VIAL. IV ONE
--- NOTE | 2021-10-30 13:53 | RAD ---
EXAM: Left lower extremity venous Doppler. HISTORY: Left lower extremity pain/swelling. COMPARISON: None. FINDINGS: Grayscale and Doppler analysis of the left lower extremity deep venous system was performed with graded compression and augmentation. The common femoral, greater saphenous, superficial femoral , popliteal and calf veins were assessed. There is no evidence of deep venous thrombosis. IMPRESSION: 1. No evidence of deep venous thrombosis. Electronically signed by: Karen Wren MD (10/30/2021 1:51 PM) [id number]
== END ==
LOC: US 13:21
PROVIDERS: ATTEND Internal Medicine Hematology & Oncology
DX: M79.605 Pain in left leg (principal); M79.89 Other specified soft tissue disorders
CPT/HCPCS: 93971